=== PATIENT | female | born 1945 | race Caucasian/White ===

== ENCOUNTER 2023-06-15 12:18 | Outpatient (CLI) | payer MEDICARE | END 2023-06-15 12:19 | disposition home or self-care (01) | LOC: SCSRAD 12:18 | PROVIDERS: ATTEND Family Medicine | DX: M54.2 Cervicalgia (principal); R42 Dizziness and giddiness; M47.812 Spondylosis without myelopathy or radiculopathy, cervical region | CPT/HCPCS: 36415; 72040; 80053; 81001; 84443; 85025 ==

== ENCOUNTER 2025-08-11 09:23 | Outpatient (CLI) | payer MEDICARE | END 2025-08-11 09:24 | disposition home or self-care (01) | LOC: BICMRI 09:23 | PROVIDERS: ATTEND Specialist | DX: M50.11 Cervical disc disorder with radiculopathy, high cervical region (principal); M50.123 Cervical disc disorder at C6-C7 level with radiculopathy; M47.22 Other spondylosis with radiculopathy, cervical region; M43.12 Spondylolisthesis, cervical region; M48.02 Spinal stenosis, cervical region; M43.22 Fusion of spine, cervical region; M47.23 Other spondylosis with radiculopathy, cervicothoracic region; M25.78 Osteophyte, vertebrae | CPT/HCPCS: 72141 ==